=== PATIENT | male | born 1955 ===

== ENCOUNTER 2024-05-23 17:23 | Inpatient (IN) | payer MEDICARE ==
[~2024-05-23] VITALS: Ht 175.3 cm; Wt 81.0 kg
[2024-05-23 18:11] LABS: BASOPHILS ABSOLUTE AUTO 0.06 K/mm3 (0.00-0.23); BASOPHILS PERCENT AUTO 1 % (0-2); EOSINOPHILS ABSOLUTE AUTO 0.19 K/mm3 (0.00-0.68); EOSINOPHILS PERCENT AUTO 2 % (0-6); Hematocrit 25.7 % (37.0-53.0); Hemoglobin 8.3 g/dL (13.5-17.5); IMMATURE GRAN PERCENT AUTO 5 % (0-1); LYMPHOCYTES PERCENT AUTO 16 % (21-46); MONOCYTES ABSOLUTE AUTO 1.06 K/mm3 (0.16-1.47); MONOCYTES PERCENT AUTO 12 % (4-13); Mean Corpuscular HGB 31.6 pg (26.0-34.0); Mean Corpuscular HGB Conc 32.3 g/dL (31.5-36.5); Mean Corpuscular Volume 98 fL (80-100); Mean Platelet Volume 10.4 fL (9.1-12.4); NEUTROPHILS ABSOLUTE AUTO 5.64 K/mm3 (1.96-9.15); NEUTROPHILS PERCENT AUTO 64 % (41-73); NRBC Auto 17.1 /100 WBC (0.0-0.2); Platelet Count 94 K/mm3 (150-400); RDW Coefficient Variation 23.3 % (11.7-14.2); RDW Standard Deviation 81.8 fL (35.1-46.3); Red Blood Cell Count 2.63 M/mm3 (4.30-5.90); White Blood Cell Count 8.75 K/mm3 (4.00-11.30)
[2024-05-23 18:35] LABS: Albumin, Blood 3.1 g/dL (3.4-5.0); Albumin/Globulin Ratio 0.9 (0.8-1.8); Bilirubin, Total 0.6 mg/dL (0.1-1.0); Bun/Creatinine Ratio 18.4 (12.0-20.0); Calcium, Blood 9.3 mg/dL (8.5-10.1); Creatinine, Blood 1.03 mg/dL (0.60-1.20); Globulin, Blood 3.5 g/dL (2.2-4.0); Potassium, Blood 3.5 mmol/L (3.5-5.5); Total Protein, Blood 6.6 g/dL (6.4-8.2)
[2024-05-23] MEDS ORDERED: Furosemide 10 MG/ML 4ML Vial IV ONE (19:20)
[2024-05-23 20:01] LABS: CORONAVIRUS COVID-19 AG Negative (NEGATIVE); INFLUENZA A AG Negative (NEGATIVE); INFLUENZA B AG Negative (NEGATIVE)
[2024-05-23] MEDS ORDERED: Acetaminophen 325 MG TABLET PO ONE (21:05)
[2024-05-23] MEDS ORDERED: Esmolol HCL 2500mg/250ml Prema 250 ML IV SCH (21:55)
[2024-05-23] MEDS ORDERED: NiCARdipine HCL 50 MG in NS 250 ML IV SCH (23:20)
[2024-05-24] VITALS (36 sets, daily range): BP systolic 85–146; BP diastolic 48–123
[2024-05-24 00:05] LABS: Source, Urine Foley catheter
[2024-05-24 00:10] LABS: Bilirubin, Urine Neg (Neg); Blood, Urine 4+ (Neg); Glucose Qualitative, Urine Neg (Neg); Ketones, Urine Neg (Neg); Leukocyte Esterase, Urine Neg (Neg); Nitrite, Urine Neg (Neg); Protein, Urine 2+ (Neg); Urobilinogen, Urine NORM (Normal); pH, Urine 6.5 (5.0-8.0)
[2024-05-24 00:13] LABS: Appearance, Urine Clear (Clear); Color, Urine Yellow (P-Yellow)
[2024-05-24 00:35] LABS: Bacteria Not Seen /hpf; Squamous Epithelial Cells Not Seen /hpf (Few); White Blood Cells, Urine 0-2 /hpf (0-5)
[2024-05-24] MEDS ORDERED: Acetaminophen 325 MG TABLET PO PRN (00:55)
[2024-05-24] MEDS ORDERED: Ondansetron 4 MG TAB PO PRN (00:55)
[2024-05-24] MEDS ORDERED: FentaNYL Citrate 50 MCG/ML 2 ML Injection IV PRN (00:55)
[2024-05-24] MEDS ORDERED: FLU VACC TS2024-25(6MOS UP)/PF 45 MCG/0.5 ML SYRINGE IM ONE (01:00)
[2024-05-24] MEDS ORDERED: Azithromycin 500 MG in NS 250 ML IV SCH (01:00)
[2024-05-24] MEDS ORDERED: Naloxone HCl 0.4MG / ML 1ML Vial IV PRN (01:00)
[2024-05-24] MEDS ORDERED: CefTRIAXone Sodium 1,000 MG in NS 100 ML IV SCH (01:00)
[2024-05-24] MEDS ORDERED: Esmolol HCL 2500mg/250ml Prema 250 ML IV SCH (01:30)
[2024-05-24 03:45] LABS: IMMATURE RETIC FRACTION 38.5 % (2.3-16.0); RETICULOCYTE ABSOLUTE 0.114 M/mm3 (0.0200-0.1100); RETICULOCYTE COUNT PERCENT 4.85 % (0.50-2.50)
[2024-05-24 03:46] LABS: BASOPHILS ABSOLUTE AUTO 0.05 K/mm3 (0.00-0.23); BASOPHILS PERCENT AUTO 1 % (0-2); EOSINOPHILS ABSOLUTE AUTO 0.23 K/mm3 (0.00-0.68); EOSINOPHILS PERCENT AUTO 3 % (0-6); Hematocrit 23.7 % (37.0-53.0); Hemoglobin 7.4 g/dL (13.5-17.5); IMMATURE GRAN ABSOLUTE AUTO 0.36 K/mm3 (0.00-0.10); IMMATURE GRAN PERCENT AUTO 5 % (0-1); LYMPHOCYTES PERCENT AUTO 16 % (21-46); MONOCYTES ABSOLUTE AUTO 0.78 K/mm3 (0.16-1.47); MONOCYTES PERCENT AUTO 10 % (4-13); Mean Corpuscular HGB 31.1 pg (26.0-34.0); Mean Corpuscular HGB Conc 31.2 g/dL (31.5-36.5); Mean Corpuscular Volume 100 fL (80-100); Mean Platelet Volume 9.6 fL (9.1-12.4); NEUTROPHILS ABSOLUTE AUTO 5.07 K/mm3 (1.96-9.15); NEUTROPHILS PERCENT AUTO 66 % (41-73); NRBC ABSOLUTE 1.15 K/mm3 (0.00-0.02); Platelet Count 96 K/mm3 (150-400); RDW Coefficient Variation 23.1 % (11.7-14.2); RDW Standard Deviation 82.5 fL (35.1-46.3); Red Blood Cell Count 2.38 M/mm3 (4.30-5.90); White Blood Cell Count 7.69 K/mm3 (4.00-11.30)
[2024-05-24] MEDS ORDERED: Labetalol HCL 500 MG in Dextrose 5% 150 ML IV SCH (03:50)
[2024-05-24 04:08] LABS: Percent Saturation 32.7 % (20.0-50.0)
[2024-05-24 04:24] LABS: Magnesium, Blood 2.1 mg/dL (1.6-2.4)
[2024-05-24 04:26] LABS: Alanine Aminotransfer (ALT/SGP 18 U/L (12-78); Albumin, Blood 2.7 g/dL (3.4-5.0); Albumin/Globulin Ratio 0.9 (0.8-1.8); Alk Phos 555 U/L (50-136); Anion Gap 9 mmol/L (3-11); Aspartate Aminotrans (AST/SGOT 95 U/L (12-37); Bilirubin, Total 0.3 mg/dL (0.1-1.0); Blood Urea Nitrogen 20 mg/dL (8-24); Bun/Creatinine Ratio 18.3 (12.0-20.0); CO2, Blood 24 mmol/L (21-32); Calcium, Blood 8.3 mg/dL (8.5-10.1); Chloride, Blood 105 mmol/L (98-108); Creatinine, Blood 1.09 mg/dL (0.60-1.20); Globulin, Blood 3.1 g/dL (2.2-4.0); Glomerular Filtration Rate 73 (60-); Glucose, Blood 108 mg/dL (70-99); Potassium, Blood 3.6 mmol/L (3.5-5.5); Sodium, Blood 134 mmol/L (136-145); Total Protein, Blood 5.8 g/dL (6.4-8.2)
--- NOTE | 2024-05-24 05:57 | NUR ---
SUMMARY: PT ARRIVED APPROXIMATELY 0220 THIS SHIFT FROM THE ER. PT WAS ON NC @ 4LPM, NO COMPLAINT OF SHORTNESS OF BREATH WHILE LAYING STILL. C/O CONTINUOUS ACHE IN LOWER BACK. HR 80S-90S AND BP BELOW GOAL UPON ARRIVAL. ESMOLOL WAS AT MAX RATE WITHOUT REACHING GOAL HR. WAS SWITCHED TO LABETALOL. BP CONTINUES TO LOWER WITH LABETALOL GTT. HR IS SLOWER STILL 70S-80S. DIFFICULT TO MANAGE PAIN. PT REFUSING ADDITIONAL PAIN MEDICATION.
--- NOTE | 2024-05-24 08:37 | NUR ---
START OF SHIFT THIS NURSE ASSUMED CARE AT APPROXIMATELY 0700. PT RESTING IN BED COMFORTABLY WITHOUT ANY COMPLAINTS OR CONCERNS OR QUESTIONS AT THIS TIME. PT REPORTED LAST BOWEL MOVEMENT WAS THREE DAYS AGO WHICH IS ABNORMAL BEHAVIOR FOR HIM. STOOL SOFTNER WILL BE GIVEN THIS AM. LOBETOLOL 200 PO BID STARTING THIS AM PER CARDIOLOGY. UP TO CHAIR IS OKAY PER CARDIOLOGY. WILL CONTINUE WITH THE PLAN OF CARE.
[2024-05-24] MEDS ORDERED: Docusate Sodium 100 MG Cap PO SCH (09:00)
[2024-05-24] MEDS ORDERED: Furosemide 10 MG / ML 2ML Vial IV SCH (09:00)
[2024-05-24] MEDS ORDERED: Labetalol HCL 100 MG TAB PO SCH (09:00)
[2024-05-24] MEDS ORDERED: HYDROmorphone HCl 2 MG Tab PO PRN ×2 (09:05)
--- NOTE | 2024-05-24 18:03 | NUR ---
SHIFT SUMMARY PT EDUCATED ON COMPLAINCE WITH HOME MEDICATIONS AND RISK OF UNCONTROLLED HYPERTENSION ONCE DISCHARGED. PT AND FAMILY CONCERNED WITH GETTING A UROLOGY SPECALIST. PT HAS NO REQUESTS OR QUESTIONS AT THIS TIME. PT UP IN CHAIR FOR MOST OF THE DAY WITHOUT ANY N/V. WILL CONTINUE WITH THE PLAN OF CARE.
[2024-05-24] MEDS ORDERED: Melatonin 3 MG Tab PO SCH (21:00)
--- NOTE | 2024-05-24 22:31 | NUR ---
REPORT GIVEN TO NELSY QUINTERO. PT LEFT THE ICU APPROXIMATELY 2219
--- NOTE | 2024-05-25 00:06 | NUR ---
TRANSFER NOTE FOR 05/24/24 1770 PT WAS BROUGHT UP FROM THE ICU IN THE W/C AND TRANSFERRED TO ROOM 328. HE GOT UP AND AMBULATED TO THE BED WITH NO PROBLEMS. C/O MILD HEADACHE ON ADMIT BUT THEY HAD JUST GAVE HIM TYLENOL IN THE ICU. HES ALERT ORIENTED X 4 ABLE TO VERBALIZE NEEDS. HE SEEMS REALLY DEPRESSED AND WITHDRAWN POSSIBLY DUE TO HIS NEW DX. HE WAS PUT ON A CONTINUOUS PULSE OX. HE REMAINS ON 3 L VIA NC SATTING AT 96% MULLEN CATHETER INTACT DRAINING YELLOW URINE. HE WAS ORIENTED TO THE STAFF AND ROOM. RESTING IN BED AT THIS TIME WITH CALL LIGHT IN REACH
--- NOTE | 2024-05-25 04:05 | NUR ---
SHIFT SUMMARY PT WAS A ICU TRANSFER TO US AT 2227. ALERT ORIENTED X 4 ABLE TO VERBALIZE NEEDS REQUIRES 1 PERSON SBA WITH TRANSFERS. HE HAS EDEMA TO BLLE AND SCROTAL AREA. HE HAS A HYDRONEPHROSIS. HE USE TO STRAIGHT CATH HIMSELF AT HOME HE HAS A MULLEN CATHETER NOW DRAINING YELLOWQ URINE. REMAINS ON 3L VIA NC SATTING AT 98%. CONTINUES ON A CONTINUOUS PULSE OX. HIS BP IS STABLE. REMAINS ON PO LABETOLOL BID. NO C/O CHEST PAIN OR PRESSURE AT THIS TIME. CONTINUES WITH A TYPE B AORTIC DISSECTION. ALSO HAS PROSTATE CANCER WITH METS TO BONES RESTING IN BED AT THIS TIME WITH CALL LIGHT IN REACH
[2024-05-25 04:47] VITALS: BP 129/87
[2024-05-25 05:35] LABS: Hematocrit 23.4 % (37.0-53.0); Hemoglobin 7.1 g/dL (13.5-17.5); Mean Corpuscular HGB 30.5 pg (26.0-34.0); Mean Corpuscular HGB Conc 30.3 g/dL (31.5-36.5); Mean Corpuscular Volume 100 fL (80-100); Mean Platelet Volume 9.8 fL (9.1-12.4); NRBC ABSOLUTE 0.51 K/mm3 (0.00-0.02); NRBC Auto 6.5 /100 WBC (0.0-0.2); Platelet Count 81 K/mm3 (150-400); RDW Coefficient Variation 23.1 % (11.7-14.2); RDW Standard Deviation 83.8 fL (35.1-46.3); Red Blood Cell Count 2.33 M/mm3 (4.30-5.90); White Blood Cell Count 7.88 K/mm3 (4.00-11.30)
[2024-05-25 06:06] LABS: Bun/Creatinine Ratio 26.1 (12.0-20.0); Calcium, Blood 8.6 mg/dL (8.5-10.1); Creatinine, Blood 1.11 mg/dL (0.60-1.20); Potassium, Blood 3.7 mmol/L (3.5-5.5)
[2024-05-25 06:14] LABS: BAND PERCENT MAN 5 % (0-8); BASOPHILS ABSOLUTE MAN 0.07 K/mm3 (0.00-0.23); BASOPHILS PERCENT MAN 1 % (0-2); EOSINOPHILS ABSOLUTE MAN 0.15 K/mm3 (0.00-0.68); EOSINOPHILS PERCENT MAN 2 % (0-6); LYMPHOCYTES ABSOLUTE MAN 0.86 K/mm3 (0.84-5.20); LYMPHOCYTES PERCENT MAN 11 % (21-46); METAMYELOCYTE ABSOLUTE MAN 0.07 K/mm3 (0.00-0.00); METAMYELOCYTE PERCENT MAN 1 % (0-0); MONOCYTES ABSOLUTE MAN 0.55 K/mm3 (0.16-1.47); MONOCYTES PERCENT MAN 7 % (4-13); MYELOCYTE ABSOLUTE MAN 0.07 K/mm3 (0.00-0.00); MYELOCYTE PERCENT MAN 1 % (0-0); NEUTROPHILS ABSOLUTE MAN 6.06 K/mm3 (1.96-9.15); SEG NEUTROPHILS PERCENT MAN 72 % (41-73); TOTAL CELLS COUNTED 100
[2024-05-25 07:37] VITALS: BP 142/80
--- NOTE | 2024-05-25 07:38 | NUR ---
INFORMED MD OF LOW HGB LEVEL.
[2024-05-25] MEDS ORDERED: Labetalol HCL 100 MG TAB PO SCH (09:00)
[2024-05-25 10:41] LABS: Percent Saturation 14.7 % (20.0-50.0)
[2024-05-25 12:05] LABS: Hematocrit 22.7 % (37.0-53.0); Hemoglobin 7.1 g/dL (13.5-17.5)
[2024-05-25] MEDS ORDERED: Iron Dextran 50 MG / ML 2ML Vial IV ONE (15:25)
[2024-05-25] MEDS ORDERED: NS 250 ML IV PRN (15:40)
[2024-05-25 16:44] VITALS: BP 139/82
[2024-05-25] MEDS ORDERED: Iron Dextran 975 MG in NS 250 ML IV ONE (17:00)
--- NOTE | 2024-05-25 17:10 | NUR ---
SHIFT SUMMARY PT AOX4, COOPERATIVE, ABLE TO MAKE NEEDS KNOWN. PT HAS NOT BEEN OUT OF BED FOR SHIFT. PALLIATIVE CARE HAD CONVERSATION WITH PTMD TO SIGN POLST ON DOOR. MULLEN CATHETER INTACT AND DRAINING TO GRAVITY. BED IN LOWEST POSITION, CALL LIGHT WITHIN REACH.
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
[2024-05-25 19:38] VITALS: BP 135/69
[2024-05-26 04:12] VITALS: BP 120/66
--- NOTE | 2024-05-26 05:04 | NUR ---
SHIFT SUMMARY PT ALERT ORIENTED X 4 ABLE TO VERBALIZE NEEDS GETS UP AND AMBULATES TO THE BATHROOM WITH SBA AND WALKER. C/O GENERALIZED PAIN MEDICATED WITH TYLENOL WITH GOOD RELIEF. HE HAD A LARGE BM AND HAS SINCE HAD CONTINUOUS LOOSE STOOLS. HIS CODE STATUS WAS CHANGED TO DNR LAST NIGHT. HES WAITING FOR A HOSPICE CONSULT THEN TO DC WITH HOSPICE TO HIS DAUGHTERS. REMAINS ON 3L VIA NC. NO C/O CHEST PAIN OR PRESSURE. HIS SCROTUM REMAINS ENLARGED. LABS WILL BE DONE THIS AM. MULLEN CATHETER INTACT DRAINING DARK YELLOW URINE. HES RESTING IN BED AT THIS TIME WITH CALL LIGHT IN REACH
[2024-05-26 06:18] LABS: Hematocrit 23.7 % (37.0-53.0); Hemoglobin 7.3 g/dL (13.5-17.5); Mean Corpuscular HGB 30.5 pg (26.0-34.0); Mean Corpuscular HGB Conc 30.8 g/dL (31.5-36.5); Mean Corpuscular Volume 99 fL (80-100); NRBC ABSOLUTE 0.44 K/mm3 (0.00-0.02); NRBC Auto 5.4 /100 WBC (0.0-0.2); Platelet Count 80 K/mm3 (150-400); RDW Standard Deviation 84.5 fL (35.1-46.3); Red Blood Cell Count 2.39 M/mm3 (4.30-5.90); White Blood Cell Count 8.15 K/mm3 (4.00-11.30)
[2024-05-26 06:42] LABS: BAND PERCENT MAN 4 % (0-8); BASOPHILS PERCENT MAN 0 % (0-2); EOSINOPHILS ABSOLUTE MAN 0.08 K/mm3 (0.00-0.68); EOSINOPHILS PERCENT MAN 1 % (0-6); LYMPHOCYTES ABSOLUTE MAN 0.97 K/mm3 (0.84-5.20); LYMPHOCYTES PERCENT MAN 12 % (21-46); MONOCYTES ABSOLUTE MAN 0.97 K/mm3 (0.16-1.47); MONOCYTES PERCENT MAN 12 % (4-13); NEUTROPHILS ABSOLUTE MAN 6.11 K/mm3 (1.96-9.15); SEG NEUTROPHILS PERCENT MAN 71 % (41-73); TOTAL CELLS COUNTED 100
[2024-05-26 06:44] LABS: Bun/Creatinine Ratio 31.3 (12.0-20.0); Calcium, Blood 8.7 mg/dL (8.5-10.1); Creatinine, Blood 0.89 mg/dL (0.60-1.20); Potassium, Blood 3.8 mmol/L (3.5-5.5)
[2024-05-26 07:36] VITALS: BP 152/99
[2024-05-26] MEDS ORDERED: Furosemide 20 MG Tab PO SCH (09:00)
[2024-05-26] MEDS ORDERED: Labetalol HCL 100 MG TAB PO SCH (09:00)
[2024-05-26] MEDS ORDERED: oxyBUTYnin chloride 5 MG TAB PO SCH (12:00)
[2024-05-26] MEDS ORDERED: Morphine Sulfate 20 MG/1ML 1 ML Oral Syringe SL PRN (13:30)
[2024-05-26] MEDS ORDERED: LORazepam 1 MG Tab PO PRN (13:30)
[2024-05-26] MEDS ORDERED: Promethazine HCl 25 MG Tab PO PRN (13:30)
[2024-05-26] MEDS ORDERED: Morphine Sulfate 10 MG/ML 1MLSYR IV PRN (13:30)
--- NOTE | 2024-05-26 18:19 | NUR ---
PALLIATIVE CARE VISIT: 1300 MET WITH PT AND IN ROOM. PT IS ABLE TO PARTICIPATE IN MEANINGFUL CONVERSATION. PT REPORTS HE IS HAVING UNCONTROLLED PAIN TO ABD. HE STATES HE FEELS LIKE HE IS HAVING "SPASMS IN MY PROSTATE". PT ALSO REPORTS HE HAD SEVERAL BM'S LAST NIGHT SO HE DID NOT SLEEP WELL. HE STATES HE IS NO LONGER HAVING BM'S. DISCUSSED CONCERNS WITH PRIMARY RN. SUGGESTED PT HAVE MULLEN CATHETER FLUSHED TO ENSURE IT IS PATENT AND DRAINING SHE VOICED CONCERNS HE HAD LITTLE URINE OUTPUT. ALSO CALLED DR. MORENO AND REQUESTED MUSCLE RELAXER FOR SPASMS. DISCUSSED COMFORT MEASURES VS WAITING TO START HOSPICE ONCE HOME. PT STATES HE WOULD LIKE TO BEGIN COMFORT MEASURES NOW. HE AGREES CONTINUING LABETOLOL WILL BE PART OF PROVIDING COMFORT TO KEEP BLOOD PRESSURE CONTROLLED. IS IN AGREEMENT WITH POC. 1700 ASSISTED PT AND WITH COMPLETING ADVANCE DIRECTIVE FOR HEALTHCARE. 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 HAD TWO WITNESSES SIGN AD. COPIES PLACED ON CHART. ORIGINAL GIVEN TO RENARD. FOLLOWED UP ON PAIN MANAGEMENT. PT MULLEN CATHETER WAS CLOGGED AND NOT DRAINING. PRIMARY RN CHANGED CATHETER. PT STATES MORPHINE GIVEN WAS VERY EFFECTIVE IN TREATING HIS PAIN. ORDER PLACED TO FLUSH MULLEN CATHETER EACH SHIFT TO MAINTAIN PATENCY. COMFORT CARE CART ORDER PLACED FOR WHEN WILL BE BACK TOMORROW.
--- NOTE | 2024-05-26 18:44 | NUR ---
PATIENT TRRANSITIONED TO COMFORT CARE TODAY. MULLEN NOT PATENT TODAYAND WAS CHANGED. IT IS NOW DRAINING WELL AND ORDERS RECEIVED TO FLUSH QSHIFT. PAIN WELL CONTROLLED WITH MORPHINE. AT BEDSIDE FOR MOST OF THE SHIFT. PATIENT A/OX4 AND ABLE TO MAKE NEEDS KNOWN.
[2024-05-26 20:32] VITALS: BP 125/75
[2024-05-27 02:11] VITALS: BP 139/73
--- NOTE | 2024-05-27 04:32 | NUR ---
SHIFT SUMMARY A&0X4. MULLEN BAG EMPTIED PF 950 ML YELLOW URINE WITH SCANT AMT SEDIMENT EARLY IN SHIFT. IRIIGATED AT 0000 PER ORDER TO IRRIGATE ONCE PER SHIFT. CONTINUES TO DRAIN ADEQUATE VOLUMES OF YELLOW URINE. HAS DENIED ANY PAIN -EXPLAINED THAT IF HAS ANY BLADDER SPASMS OR ANY OTHER PAIN THAT PAIN MEDICATION IS AVAILABLE. DECLINED ANY PAIN MED OTHER THAN TYLENOL OF YET THIS SHIFT.125/75 PRIOR TO SCHEDULED DOSE OF P.O. TRANDATE AT [facility].S.AND 130/72 AT 0000. USES CALL LIGHT APPROPRIATELY TO VOICE NEEDS. 02 ON AT 2L/M VIA NC. BASES DIMINISHED. DENIES ANY RESP DISTRESS & NONE OBSERVED.
[2024-05-27 07:20] VITALS: BP 143/78
[2024-05-27] MEDS ORDERED: Oxymetazoline 0.05% Nasal Relief Spray 15mL BTL PRN (09:25)
--- NOTE | 2024-05-27 12:59 | NUR ---
MET WITH PATIENT. HE WAS RESTING IN BED. REPORTED THAT HE WAS COMFORTABLE AT THIS TIME. HE RELAYED THAT HIS MULLEN HAD NOT BEEN DRAINING, BUT WAS WORKING WELL SINCE IT WAS REPLACED. WE DISCUSSED MEDICATIONS AND HOSPICE IN GENERAL. PATIENT IS HAVING SOME ANXIETY ABOUT NOT KNOWING WHAT TO EXPECT. PROVIDED THERAPUTIC CONVERSATION. PC WILL CONTINUE TO FOLLOW
--- NOTE | 2024-05-27 15:58 | NUR ---
PATIENT A/OX4, UP WITH FWW AND SBA. DENIES ANY PAIN THIS SHIFT. MULLEN TO GRAVITY DRAINING WELL, FLUSHED WITH 10 ML'S NS THIS AFTERNOON PER MD ORDER. PATIENT EATING WELL AND ABLE TO FEED HIMSELF. 2LO2 FOR COMFORT, PORTABLE TANK DELIVERED TODAY. PLAN IS FOR DC HOME TOMORROW WITH HOSPICE CARE.
[2024-05-27 20:03] VITALS: BP 149/81
--- NOTE | 2024-05-28 02:25 | NUR ---
SHIFT SUMMARY/COMFORT CARE NOTE NO ACUTE EVENTS DURING THIS SHIFT. PT DENIES A NEED FOR PAIN MEDICATIONS @[facility]. CONTINUING PT EDUCATION. MULLEN DRAINING TO GRAVITY, GOOD OUTPUT. PT IS A/O X4, ABLE TO MAKE HIS NEEDS KNOWN AND COOPERATIVE WITH CARE. @[facility] PT'S BY THE BEDSIDE. BED AT THE LOWEST POSITION, CALL LIGHT W/I REACH. PLAN IS TO D/C HOME IN HOSPICE TODAY.
[2024-05-28 07:49] VITALS: BP 148/92
[2024-05-28] MEDS ORDERED: Phenyleph/Mineral Oil/Petrolat 1 APPLIC/57 GM Tube PR ONE (11:00)
[2024-05-28] MEDS ORDERED: DOCU100 PO (12:24)
[2024-05-28] MEDS ORDERED: ACET325 PO (12:24)
[2024-05-28] MEDS ORDERED: LABE200 PO (12:25)
[2024-05-28] MEDS ORDERED: OXYB5 PO (12:25)
[2024-05-28] MEDS ORDERED: OXYM.05NI (12:25)
--- NOTE | 2024-05-28 13:15 | NUR ---
PATIENT DC'D HOME ON HOSPICE WITH FAMILY. DC INSTRUCTIONS AND EDUCATION DISCUSSED WITH PATIENT AND COPY PROVIDED. HOSPICE NURSE TO MEET PATIENT AT THE HOUSE. PATIENT DENIES ANY FURTHER QUESTIONS OR CONCERNS.
--- NOTE | 2024-05-28 14:10 | NUR ---
PT IS A/O X3. ABLE TO MAKE NEEDS KNOWN. PT REPORTS HIS PAIN IS WELL MANAGED WITH TYLENOL. PRIMARY RN REPORTS PT HAS HEMORRHOIDS AND WOULD BENEFIT FROM HEMORRHOID CREAM. PROVIDER TO PLACE ORDERS.
== END 2024-05-28 13:29 | disposition hospice, home (50) | DRG 299 ==
LOC: ER 17:23 → MEDS 05-24 00:54 → ICUE 05-24 00:54 → ERHOLD 05-24 00:54 → ICUE 05-24 02:30 → MEDS 05-24 22:28 → ENPENDDIS 05-28 11:40 → MEDS 05-28 13:29
PROVIDERS: Internal Medicine; Student in an Organized Health Care Education/Training Program; ADMIT Student in an Organized Health Care Education/Training Program
PROC: 0T9B70Z Drainage of Bladder with Drainage Device, Via Natural or Artificial Opening (ICD-10-PCS; principal; 2024-05-24)
DX: I71.019 Dissection of thoracic aorta, unspecified (principal); J96.01 Acute respiratory failure with hypoxia; N13.30 Unspecified hydronephrosis; M84.58XA Pathological fracture in neoplastic disease, other specified site, initial encounter for fracture; C61 Malignant neoplasm of prostate; R33.9 Retention of urine, unspecified; D69.6 Thrombocytopenia, unspecified; I50.9 Heart failure, unspecified; E88.A Wasting disease (syndrome) due to underlying condition; I11.0 Hypertensive heart disease with heart failure; Z68.26 Body mass index [BMI] 26.0-26.9, adult; Z51.5 Encounter for palliative care; Z28.21 Immunization not carried out because of patient refusal
CPT/HCPCS: 36415; 51702; 71046; 71260; 74177; 76705; 80048; 80053; 81001; 82728; 83540; 83550; 83735; 83880; 84145; 84484; 85014; 85018; 85025; 85045; 85060; 85379; 87428-QW; 93005; 93010; 93306; 94760; 94762; 96365; 96366; 96375; 99291-25; A9270; G0103; J0456; J0696; J1750; J1940; J2270; J3010; J7050; J7060; Q9967